=== PATIENT | male | born 1975 | race Caucasian/White ===

== ENCOUNTER 2019-05-23 08:43 | Outpatient (CLI) | payer BC ==
--- NOTE | 2019-05-23 09:09 | RAD ---
Exam:Right wrist 3 views HISTORY: Pain COMPARISON: None FINDINGS: Intercarpal and radiocarpal joint spaces are preserved. No fracture. No cortical irregulari ty or periosteal reaction. Nonspecific well-corticated ossific density injecting along the posterior aspect of the distal carpal row, best appreciated on the lateral projection. Findings may be due to remote injury. Correlate clinically. IMPRESSION: 1. Well-corticated ossific density as described above. Further evaluation including MRI or CT if ther e is concern for radiographically occult fracture. 2. No significant degenerative change
== END 2019-05-23 08:44 | disposition home or self-care (01) ==
LOC: RAD 08:43
DX: M25.531 Pain in right wrist (principal); M89.9 Disorder of bone, unspecified

== ENCOUNTER 2020-06-23 10:56 | Outpatient (CLI) | payer BC ==
--- NOTE | 2020-06-23 11:28 | ULT ---
EXAM: US Gallbladder RUQ CLINICAL HISTORY: Cholecystitis. COMPARISON: None. CORRELATION: Abdomen and pelvic CT 06/22/2020 FINDINGS: Pancreas: The head of the pancreas has a normal echotexture. The remainder the pancreas is obscured by bowel gas Liver:Hepatic parenchyma has a allergies echotexture compatible with hepatic steatosis and fatty spar ing. Limited evaluation for hepatic masses and intrahepatic biliary dilatation. Right hepatic lobe: 18.6 cm Gallbladder: No sonographic evidence of cholelithiasis, gallbladder wall thickening or pericholecysti c fluid. Wolf's sign:Negative Portal Vein: Patent. Appropriate directional flow Bile ducts: 0.6 cm common bile duct diameter Right kidney: No hydronephrosis. Right kidney measures 10.0 x 6.0 x 6.1 cm in length. IMPRESSION: 1. No sonographic evidence of cholelithiasis or sludge 2. Hepatic steatosis with areas of fatty sparing.
== END 2020-06-23 10:57 | disposition home or self-care (01) ==
LOC: BICULT 10:56
PROVIDERS: ATTEND Specialist
DX: K81.0 Acute cholecystitis (principal); K76.0 Fatty (change of) liver, not elsewhere classified
CPT/HCPCS: 76705